=== PATIENT | female | born 1975 | race African-American/Black ===

== ENCOUNTER 2018-05-24 06:08 | Day surgery (SDC) | payer OTHER ==
[2018-05-17 12:34] VITALS: BMI 25.3
[2018-05-24] MEDS ORDERED: PROPOFOL 20 ML ONE (07:27)
[2018-05-24] MEDS ORDERED: MIDAZOLAM HCL 2 MG/2 ML SINGLE DOSE VIAL ONE (07:27)
[2018-05-24] MEDS ORDERED: SUCCINYLCHOLINE CHLORIDE 200 MG/10 ML VIAL ONE (07:27)
[2018-05-24] MEDS ORDERED: LIDOCAINE 1%/EPI 1:100000 (20 ML MULTI DOSE VIAL) ONE (07:28)
[2018-05-24] MEDS ORDERED: BUPIVACAINE HCL/PF 0.5% (5MG/ML) 10 ML VIAL ONE (07:28)
[2018-05-24] MEDS ORDERED: DEXAMETHASONE SOD PHOSPHATE 4 MG/1 ML VIAL ONE (07:32)
[2018-05-24] MEDS ORDERED: SODIUM CHLORIDE 0.9% P/F 10 ML VIAL IJ ONE (07:32)
[2018-05-24] MEDS ORDERED: ceFAZolin SODIUM 1 GM VIAL ONE (07:32)
[2018-05-24] MEDS ORDERED: LIDOCAINE HCL/PF 2% SDV 5ML VIAL ONE (07:32)
[2018-05-24] MEDS ORDERED: SEVOFLURANE 250 ML BTL ONE (07:43)
[2018-05-24] MEDS ORDERED: DEXMEDETOMIDINE HCL 200 MCG/2 ML ML IVPB ONE (07:43)
[2018-05-24] MEDS ORDERED: ONDANSETRON 4 MG/2 ML VIAL IVPUSH PRN (07:44)
[2018-05-24] MEDS ORDERED: LACTATED RINGERS SOLUTION 1,000 ML IV SCH (07:45)
--- NOTE | 2018-05-24 08:02 | HP ---
Satellite [facility] - Chief Complaint Chief Complaint: right knee pain - Past Medical History Allergies/Adverse Reactions: Allergies Allergy/AdvReac Type Severity Reaction Status Date / Time oxycodone Allergy Verified 05/17/18 12:24 Penicillins Allergy Rash Verified 05/17/18 12:24 ...LMP Comment: 7 yrs ago - Current Medications Current Medications: Home Medications Medication Instructions Recorded Albuterol 0.083% Nebulizer Xuan 1 amp PO DAILY PRN 05/17/18 [Ventolin 0.083% Nebulizer Soln -] Budesonide/Formeterol Fumarate 1 puff PO DAILY 05/17/18 [SYMBICORT 160/4.5mcg -] Prednisone 15 mg PO DAILY 05/17/18 Acetaminophen with Codeine 1 each PO Q6H #20 tablet MDD 4 05/24/18 [Tylenol with Codeine #3 Tablet] Valsartan 25 mg PO DAILY 05/24/18 Satellite Physical Exam - Physical Examination Vital Signs: Vital Signs Period Temp Pulse Resp BP Sys/Curiel Pulse Ox Last 24 Hr 98.0 F 90 20 138/99 97 General Appearance: Well Nourished, Well Developed, Alert & Oriented x3 ENT: Clear Lung: Normal air movement Heart: Regular rate & rhythm Extremities: Other (right knee- + swelling, + ttp, decr rom, + mcmurrays, nvi MRI + mt) Neurological: Intact, Alert, Oriented Satellite Impression/Plan - Impression/Plan Impression: right knee internal derangement Operative Procedure: right knee arthroscopy Date to be Performed: 05/24/18
[2018-05-24] MEDS ORDERED: ceFAZolin SODIUM 1 GM VIAL IVPB ONE (08:10)
[2018-05-24] MEDS ORDERED: LIDOCAINE 1%/EPI 1:100000 (20 ML MULTI DOSE VIAL) IJ ONE ×2 (08:16→08:31)
[2018-05-24] MEDS ORDERED: KETOROLAC TROMETHAMINE 30 MG/1 ML VIAL ONE (08:29)
[2018-05-24] MEDS ORDERED: BUPIVACAINE HCL/PF (5 MG/ML) 30 ML VIAL IJ ONE ×2 (08:30→08:31)
--- NOTE | 2018-05-24 08:40 | OP ---
Operative Note - Note: Operative Date: 05/24/18 ([facility]) Pre-Operative Diagnosis: right knee internal derangement Operation: right knee arthroscopy with PMM Post-Operative Diagnosis: Same as Pre-op Surgeon: Benedict Chaidez Anesthesiologist/ANESTHESIOLOGIST ATTENDING: Chay Gomez Anesthesia: General, Local Specimens Removed: shavings Estimated Blood Loss (mls): 5 Operative Report Dictated: Yes
--- NOTE | 2018-05-24 09:09 | OP ---
DATE OF OPERATION: 05/24/2018 PREOPERATIVE DIAGNOSIS: Internal derangement of right knee. POSTOPERATIVE DIAGNOSIS: Internal derangement of right knee. PROCEDURE: Arthroscopy, right knee; partial medial meniscectomy. SURGICAL ATTENDING: Benedict Chaidez MD ANESTHESIA: General with LMA. CLOSURE: 4-0 nylon. COMPLICATIONS: None. CONDITION: Stable condition. DESCRIPTION OF PROCEDURE: The patient was taken to the operating room on May 24, 2018. General anesthesia with LMA was administered by the anesthesiologist. The right lower extremity was prepped and draped in the usual sterile fashion. The medial and lateral infrapatellar portal sites were infiltrated with 1% Xylocaine with epinephrine. Each portal was then made with a 15 blade for a blunt trocar. A scope was placed in the lateral infrapatellar portal, up the suprapatellar pouch. The knee was inflated with a cocktail of 10 mL 1% Xylocaine, 10 mL 0.5% Marcaine, and 20 mL of arthroscopic saline infused through the scope cannula. After allowing the medicine to anesthetize the intraarticular portion of the knee, the procedure was performed. The scope was placed through the sheath and up into the suprapatellar pouch. Pouch was visualized to be clean. Medial and lateral gutters visualized to be clean. The undersurface of the patella and trochlea were visualized to be intact. With valgus stress on the knee, the medial compartment was entered. The medial meniscus was found to have a large flap tear posteriorly. This was debrided back to smooth, stable meniscal tissue using meniscal biter and arthroscopic shaver. The medial femoral condyle was run and found to intact as was the medial tibial plateau. At 90 degrees the ACL was visualized and probed, found to be intact. In the figure-four position, the lateral compartment was entered. Lateral meniscus was visualized, probed and found to be intact. The lateral femoral condyle was run and found to be intact, as was the lateral tibial plateau. The knee was irrigated with copious amounts of irrigation. The fluid was drained from the knee. The portals were closed. Prior to pulling the scope trocar, 20 mL of 0.5% Marcaine was infused into the knee for postoperative analgesia. Sterile pressure dressing was placed over the knee. Patient awakened from anesthesia and transferred to Recovery in stable condition. No complications. Estimated blood loss negligible. Dre HAINES/[id number]
[2018-05-24] MEDS ORDERED: ACETAMINOPHEN 325 MG TABLET (FP) PO PRN (11:25)
[2018-05-24 17:40] VITALS: PULSE 68; TEMP 97.8
[2018-05-24 17:45] VITALS: BP 130/70
--- NOTE | 2018-05-27 11:15 | PATH ---
Surgical Pathology Report Patient Name: RASHIDA AMBROCIO [facility]. Rec. #: [id number] /Age/Gender: 1975 (Age: 43) / F Account: [id number] Location: [facility] Taken: 05/24/2018 Received: 05/24/2018 Reported: 05/27/2018 Physicians: Benedict Chaidez M.D. Specimen(s) Received RIGHT KNEE SHAVINGS Clinical History Tear right knee Final Diagnosis KNEE SHAVINGS, RIGHT, ARTHROSCOPY: FRAGMENTS OF CARTILAGE, DENSE FIBROCONNECTIVE TISSUE, ADIPOSE TISSUE, AND SYNOVIUM. Electronically Signed Emma Reese M.D. Gross Description Received in formalin, labeled "right knee shavings," is a 4.5 x 4.5 x 0.6 cm. aggregate of pickett-yellow soft tissue fragments. A shared services representative portion is submitted in one cassette. /05/24/201805/24/2018
== END 2018-05-24 13:45 | disposition home or self-care (01) ==
LOC: JASU-SURG 06:08
PROVIDERS: ATTEND Orthopaedic Surgery
PROC: 0SBC4ZZ Excision of Right Knee Joint, Percutaneous Endoscopic Approach (ICD-10-PCS; principal; 2018-05-24 08:00)
DX: M23.303 Other meniscus derangements, unspecified medial meniscus, right knee (principal)
CPT/HCPCS: 84703; 88304-TC; 94760; 97116-GP

== ENCOUNTER 2022-01-10 00:19 | Emergency (ER) | payer OTHER ==
[2022-01-10 00:53] VITALS: BP 154/94; PULSE 90; RESP 17; TEMP 98.3; BMI 27.4
[2022-01-10] MEDS ORDERED: ALBUTEROL SO4 0.083% IH SOL 2.5 MG/3 ML VIAL.NEB. NEB ONE ×2 (00:56→01:11)
[2022-01-10] MEDS ORDERED: predniSONE 20 MG TABLET (UD) PO ONE (00:56)
[2022-01-10] MEDS ORDERED: predniSONE 20 MG TABLET (UD) ONE (01:11)
== END 2022-01-10 02:02 | disposition home or self-care (01) ==
LOC: JER 00:19
PROC: 3E0F7GC Introduction of Other Therapeutic Substance into Respiratory Tract, Via Natural or Artificial Opening (ICD-10-PCS; principal; 2022-01-10)
DX: J45.20 Mild intermittent asthma, uncomplicated (principal)
CPT/HCPCS: 0241U-QW; 93005; 93010; 99284-25